=== PATIENT | female | born 1980 ===

== ENCOUNTER 2016-09-27 22:44 | Emergency (ER) | payer BC ==
[2016-09-27 22:58] VITALS: BP 133/90; PULSE 85; RESP 16; TEMP 98; O2SAT 99
--- NOTE | 2016-09-27 23:39 | C.PDOC ---
History Of Present Illness 36 year old female who presents to the ER with a complaint of an open suture wound. Patient had a procedure done 3 days ago; went yesterday for a wound check and was placed on keflex and clindamycin. Patient states one of the sutures popped and noticed some drainage which prompted visit. Denies fever, chills, or active bleeding. Time Seen by Provider: 09/27/16 23:05 Chief Complaint (Nursing): Wound Check History Per: Patient History/Exam Limitations: no limitations Onset/Duration Of Symptoms: Hrs Current Symptoms Are (Timing): Still Present Recent travel outside of the [place]: No Past Medical History Reviewed: Historical Data, Nursing Documentation, Vital Signs Vital Signs: Last Vital Signs Temp 98 F 09/27/16 22:55 Pulse 85 09/27/16 22:55 Resp 16 09/27/16 22:55 BP 133/90 09/27/16 22:55 Pulse Ox 99 09/28/16 05:04 - Medical History PMH: No Chronic Diseases Surgical History: No Surg Hx Family History: States: Unknown Family Hx - Social History Hx Alcohol Use: No Hx Substance Use: No - Immunization History Hx Tetanus Toxoid Vaccination: No Hx Influenza Vaccination: No Hx Pneumococcal Vaccination: No Review Of Systems Constitutional: Negative for: Fever, Chills Skin: Positive for: Other (Sutures in place) Physical Exam - Physical Exam Appears: Non-toxic, No Acute Distress Skin: Warm, Dry Head: Atraumatic, Normacephalic Eye(s): bilateral: Normal Inspection, PERRL Oral Mucosa: Moist Extremity: Normal ROM (x4), Other (Healing wound to posterior aspect of right upper thigh below the gluteal fold, no active drainage or wound dehiscence, (+) minimal localized erythema, no induration.) Neurological/Psych: Oriented x3, Normal Speech, Normal Cognition ED Course And Treatment O2 Sat by Pulse Oximetry: 99 (Room air) Pulse Ox Interpretation: Normal Progress Note: Wound dressed by RN. Patient advised to continue current medications and to follow up with PMD. Disposition Counseled Patient/Family Regarding: Diagnosis, Need For Followup, Rx Given - Disposition Disposition: HOME/ ROUTINE Disposition Time: 23:35 Condition: STABLE Additional Instructions: Please continue current meds Apply warm compress to area Follow up with your doctor Return to ER if worse Instructions: Acute Wound Care (ED) Forms: [facility] (Korean), Work Excuse - Clinical Impression Clinical Impression: Local infection of wound - Scribe Statement The provider has reviewed the documentation as recorded by the Scribelizabeth Mcleod All medical record entries made by the Scribe were at my direction and personally dictated by me. I have reviewed the chart and agree that the record accurately reflects my personal performance of the history, physical exam, medical decision making, and the department course for this patient. I have also personally directed, reviewed, and agree with the discharge instructions and disposition.
== END 2016-09-28 00:31 | disposition home or self-care (01) ==
LOC: C.ER 22:44
DX: T81.4XXA Infection following a procedure, initial encounter (principal); S71.101A Unspecified open wound, right thigh, initial encounter; X58.XXXA Exposure to other specified factors, initial encounter